=== PATIENT | male | born 1980 | race Caucasian/White ===

== ENCOUNTER 2017-06-18 14:53 | Emergency (ER) | payer OTHER ==
[~2017-06-18] VITALS: Ht 167.6 cm; Wt 70.2 kg
[2017-06-18 15:36] VITALS: Ht 167.6 cm; Wt 70.2 kg
--- NOTE | 2017-06-18 18:20 | ERD ---
ER Documentation Chief Complaint Chief Complaint "bed bug bites" x 4 days HPI 37-year-old male complaining of bug bites 4 weeks. Patient states that he is living in a sober living house and has had problems with bedbugs in his bed. Patient states he is contacted the senior data warehouse developer in 2 weeks ago was moved to a new room however wanted to be evaluated for previous bedbugs. Patient states that he saw the bedbugs in his bed and took pictures of them. He states that he currently has been able to move out of the bed and no longer has any bites. He has not use the medication and denies any continued pruritic sensations. Denies any medical problems ROS All systems reviewed and are negative except as per history of present illness. PMhx/Soc Medical and Surgical Hx: pt denies Medical Hx, pt denies Surgical Hx History of Surgery: No Anesthesia Reaction: No Hx Neurological Disorder: No Hx Respiratory Disorders: No Hx Cardiac Disorders: No Hx Psychiatric Problems: No Hx Miscellaneous Medical Probl: No Hx Alcohol Use: No Hx Substance Use: No Hx Tobacco Use: No Smoking Status: Never smoker Physical Exam Vitals Vital Signs Date Time Temp Pulse Resp B/P Pulse Ox O2 Delivery O2 Flow Rate FiO2 06/18/17 15:36 99.0 77 19 127/66 99 Physical Exam GENERAL: The patient is well-appearing, well-nourished, in no acute distress HEENT: Atraumatic. Conjunctivae are pink. Pupils equal, round, and reactive to light. There is no scleral icterus. Tympanic membranes clear bilaterally. Oropharynx clear. No nystagmus or photophobia. CHEST: Clear to auscultation bilaterally. There are no rales, wheezes or rhonchi. HEART: Regular rate and rhythm. No murmurs, clicks, rubs or gallops. No S3 or S4. SKIN: multiple healing insect bites on neck, ankles and chest. No surrounding erythema. No pustules. No vesicles. Procedures/MDM MDM: 37 yr old male presenting for bug bites. I have low suspicion for new insect bites. I have low suspicion for bacterial infection. I have low suspicion for scabies. Patient is told to take benadryl if needed for itching. Patient states he no longer has exposure to bedbugs and states the itching sensation is resolving. Patient's exam is within normal limits and I have low suspicion for worsening infection or irritation. Patient is discharged with strict ER precautions. All questions answered at discharge. Departure Diagnosis: Primary Impression: Insect bite Condition: Stable Patient Instructions: Insect Bite Referrals: [facility] YOU HAVE RECEIVED A MEDICAL SCREENING EXAM AND THE RESULTS INDICATE THAT YOU DO NOT HAVE A CONDITION THAT REQUIRES URGENT TREATMENT IN THE EMERGENCY DEPARTMENT. FURTHER EVALUATION AND TREATMENT OF YOUR CONDITION CAN WAIT UNTIL YOU ARE SEEN IN YOUR DOCTORS OFFICE WITHIN THE NEXT 1-2 DAYS. IT IS YOUR RESPONSIBILITY TO MAKE AN APPOINTMENT FOR FOLOW-UP CARE. IF YOU HAVE A PRIMARY DOCTOR --you should call your primary doctor and schedule an appointment IF YOU DO NOT HAVE A PRIMARY DOCTOR YOU CAN CALL OUR PHYSICIAN REFERRAL HOTLINE AT IF YOU CAN NOT AFFORD TO SEE A PHYSICIAN YOU CAN CHOSE FROM THE FOLLOWING [facility] [address] [facility] [address] [facility] [address] [facility] [address] [facility] [address] [facility] [facility]. [facility] [address] Additional Instructions: FOLLOW UP WITH YOUR PRIMARY CARE PHYSICIAN TOMORROW.Return to this facility if you are not improving as expected. ASHLEY WOLF PA-C Jun 18, 2017 18:20
== END 2017-06-18 18:25 | disposition home or self-care (01) ==
LOC: FTE 14:53
DX: S90.562A Insect bite (nonvenomous), left ankle, initial encounter (principal); S90.561A Insect bite (nonvenomous), right ankle, initial encounter; S20.369A Insect bite (nonvenomous) of unspecified front wall of thorax, initial encounter; W57.XXXA Bitten or stung by nonvenomous insect and other nonvenomous arthropods, initial encounter; Y92.9 Unspecified place or not applicable
CPT/HCPCS: 99282